=== PATIENT | female | born 1990 | race Caucasian/White ===

== ENCOUNTER 2020-05-17 20:08 | Emergency (ER) | payer MEDICAID ==
[~2020-05-17] VITALS: Ht 160 cm; Wt 88.5 kg
[2020-05-17 20:27] VITALS: BP 115/72
--- NOTE | 2020-05-17 20:35 | NUR ---
PT TO SUBHASH RESTROOM WITH STEADY GAIT, URINE SPECIMEN CUP PROVIDED
--- NOTE | 2020-05-17 20:37 | NUR ---
29 YR OLD FEMALE PRESENTED TO THE ER WITH CC OF RIGHT FLANK PAIN. PT IS AOX4. PT STATES 7/10 NON-RADIATING SHARP RIGHT FLANK PAIN THAT STARTED 1.5 WEEKS AGO. ABD IS SOFT ROUND AND NON-TENDER AND BOWEL SOUNDS HEARD IN ALL QUADRANTS. PT STATES BURNING DURING URINATION STARTED APPROXIMATELY 2 DAYS AGO. PT DENIES OTHER MEDICAL COMPLAINTS. BED LOCKED IN LOWEST POSITION. HISTORY- GLAUCOMA, WPW ALLERGIES- NONE MEDICATIONS- AZO
--- NOTE | 2020-05-17 20:37 | NUR ---
40 ML OF RED-ORANGE URINE COLLECCTED. ERMD AWARE.
--- NOTE | 2020-05-17 20:40 | NUR ---
ERMD AT BEDSIDE FOR MEDICAL EVALUATION.
[2020-05-17] MEDS ORDERED: KETOROLAC 30 MG/ML VIAL IVP ONE (20:45)
[2020-05-17] MEDS ORDERED: NACL 0.9% 500 ML IV ONE (20:45)
[2020-05-17 21:08] LABS: BASOPHILS # (AUTO) 0.1 K/uL (0.00-0.22); BASOPHILS % (AUTO) 1.1 % (0.0-2.0); EOSINOPHILS # (AUTO) 0.1 K/uL (0-0.4); EOSINOPHILS % (AUTO) 0.6 % (0.0-4.0); HEMATOCRIT 33.5 % (36-48); HEMOGLOBIN 10.6 g/dL (12.0-16.0); LYMPHOCYTES # (AUTO) 3.3 K/uL (2.5-16.5); LYMPHOCYTES % (AUTO) 33.9 % (20.5-51.1); MEAN CORPUSCULAR HEMOGLOBIN 24 pg (27-31); MEAN CORPUSCULAR HGB CONC 32 g/dL (33-37); MEAN CORPUSCULAR VOLUME 76.1 fL (80-94); MONOCYTES # (AUTO) 0.7 K/uL (0.8-1.0); MONOCYTES % (AUTO) 7.2 % (1.7-9.3); NEUTROPHILS # (AUTO) 5.6 K/uL (1.8-7.7); NEUTROPHILS % (AUTO) 57.2 % (42.2-75.2); PLATELET COUNT (AUTO) 295 K/uL (140-450); RED CELL DISTRIBUTION WIDTH 16.8 % (11.6-13.7); WHITE BLOOD COUNT (AUTO) 9.8 K/uL (4.8-10.8)
[2020-05-17 21:08] LABS: APPEARANCE,URINE CLEAR (CLEAR); BILIRUBIN,URINE NEGATIVE (NEGATIVE); BLOOD, URINE 2+ (NEGATIVE); COLOR,URINE RED (YELLOW); LEUKOCYTE ESTERASE ,URINE TRACE (NEGATIVE); NITRITE, URINE POSITIVE (NEGATIVE); UGLUCOSE 2+ (NEGATIVE)
[2020-05-17 21:20] LABS: ALBUMIN 3.6 g/dL (3.4-5.0); CARBON DIOXIDE 27.8 mmol/L (21-32); CREATININE 0.9 mg/dL (0.6-1.3); POTASSIUM 3.8 mmol/L (3.5-5.1); TOTAL BILIRUBIN 0.2 mg/dL (0.0-1.0)
[2020-05-17 21:26] LABS: RBC,URINE 11-20 (MOD) /HPF (0-5); WBC,URINE 0-5 /HPF (0-5)
--- NOTE | 2020-05-17 22:26 | NUR ---
IV removed, catheter intact and site benign. Applied folded 4x4 gauze and tape to stop bleeding.
[2020-05-17 22:27] VITALS: BP 115/72
--- NOTE | 2020-05-17 22:28 | NUR ---
Patient discharged with v/s stable. Written and verbal after care instructions given and explained. Patient alert, oriented and verbalized understanding of instructions. Ambulatory with steady gait. All questions addressed prior to discharge. ID band removed. Patient advised to follow up with PMD. Rx of CIPRO AND MOTRIN given. Patient educated on indication of medication including possible reaction and side effects. Opportunity to ask questions provided and answered.
== END 2020-05-17 22:27 | disposition home or self-care (01) ==
LOC: MED 20:08
DX: S39.012A Strain of muscle, fascia and tendon of lower back, initial encounter (principal); N39.0 Urinary tract infection, site not specified; I45.6 Pre-excitation syndrome; Z87.442 Personal history of urinary calculi; X58.XXXA Exposure to other specified factors, initial encounter; Y93.89 Activity, other specified; Y92.89 Other specified places as the place of occurrence of the external cause; Y99.8 Other external cause status
CPT/HCPCS: 36415; 74176; 80053; 81001; 81025; 85025; 87086; 96361; 96374; 99284; J1885; J7030

== ENCOUNTER 2020-07-01 18:22 | Emergency (ER) | payer MEDICAID ==
[~2020-07-01] VITALS: Ht 160 cm; Wt 88.0 kg
[2020-07-01 18:37] VITALS: BP 127/84
--- NOTE | 2020-07-01 18:44 | NUR ---
PT AMBULATED TO BED 9
--- NOTE | 2020-07-01 18:45 | NUR ---
30 Y/O FEMALE C/O RLQ AND RUQ 8/10 PAIN DESCRIBES SHARP INTERMITTENT [id number]. PT SEEN HERE [id number] AGO DX MUSCLE STRAIN PRESCRIBED IBUPROFEN. PT STATES SYMPTOMS ARE NOT SUBSIDING. PT DENIES N/V, DENIES FEVER/CHILLS. PMH: GLAUCOMA, WPW, KIDNEY STONES ([id number]) NKA
[2020-07-01 19:47] LABS: BASOPHILS # (AUTO) 0.1 K/uL (0.00-0.22); BASOPHILS % (AUTO) 0.7 % (0.0-2.0); EOSINOPHILS % (AUTO) 0.6 % (0.0-4.0); HEMATOCRIT 33.3 % (36-48); HEMOGLOBIN 10.5 g/dL (12.0-16.0); LYMPHOCYTES # (AUTO) 2.1 K/uL (2.5-16.5); LYMPHOCYTES % (AUTO) 30.2 % (20.5-51.1); MEAN CORPUSCULAR HEMOGLOBIN 24 pg (27-31); MEAN CORPUSCULAR HGB CONC 32 g/dL (33-37); MEAN CORPUSCULAR VOLUME 76.9 fL (80-94); MONOCYTES # (AUTO) 0.6 K/uL (0.8-1.0); MONOCYTES % (AUTO) 8.9 % (1.7-9.3); NEUTROPHILS # (AUTO) 4.1 K/uL (1.8-7.7); NEUTROPHILS % (AUTO) 59.6 % (42.2-75.2); PLATELET COUNT (AUTO) 261 K/uL (140-450); RED BLOOD CELL COUNT(AUTO) 4.33 MIL/uL (4.20-5.40); RED CELL DISTRIBUTION WIDTH 16.3 % (11.6-13.7); WHITE BLOOD COUNT (AUTO) 6.8 K/uL (4.8-10.8)
[2020-07-01 19:53] LABS: APPEARANCE,URINE CLEAR (CLEAR); BILIRUBIN,URINE NEGATIVE (NEGATIVE); BLOOD, URINE TRACE-I (NEGATIVE); COLOR,URINE YELLOW (YELLOW); LEUKOCYTE ESTERASE ,URINE NEGATIVE (NEGATIVE); NITRITE, URINE NEGATIVE (NEGATIVE); UGLUCOSE NEGATIVE (NEGATIVE)
--- NOTE | 2020-07-01 20:00 | NUR ---
ULTRASOUND AT BEDSIDE.
[2020-07-01 20:08] LABS: ALBUMIN 3.4 g/dL (3.4-5.0); ANION GAP 12.2 (8-16); CARBON DIOXIDE 25.6 mmol/L (21-32); POTASSIUM 3.8 mmol/L (3.5-5.1); TOTAL BILIRUBIN 0.2 mg/dL (0.0-1.0)
--- NOTE | 2020-07-01 21:23 | NUR ---
CONSENT SIGNED BY ERMD AND PATIENT.
[2020-07-01] MEDS ORDERED: MORPHINE SULFATE 4 MG/ML SYR IVP ONE (21:50)
[2020-07-01] MEDS ORDERED: NAPR-54 PO (22:27)
[2020-07-01 22:46] VITALS: BP 114/73
== END 2020-07-01 23:20 | disposition home or self-care (01) ==
LOC: MED 18:22
DX: R10.31 Right lower quadrant pain (principal); R10.32 Left lower quadrant pain; Z87.442 Personal history of urinary calculi; Z79.899 Other long term (current) drug therapy
CPT/HCPCS: 36415; 74177; 76705; 80053; 81003; 81025; 83690; 85025; 96374; 99285; J2270; Q9967

== ENCOUNTER 2020-11-23 14:02 | Emergency (ER) | payer MEDICAID ==
[~2020-11-23] VITALS: Ht 160 cm; Wt 88.9 kg
[~2020-11-23 14:02] MED LIST: NAPR-54 PO
[2020-11-23 14:07] VITALS: BP 111/65
--- NOTE | 2020-11-23 14:31 | NUR ---
30 Y/O F BIB SELF FROM HOME, PATIENT PRESENTS TO ED WITH LOWER BACK PAIN THAT RADIATES TO BILATERAL KNEES. PT STATES SHE TYPICALLY HAS CHRONIC BACK PAIN, BUT WORSENED AFTER LIFTING SON THIS MORNING AND "FELT A NEW POPPING SENSATION". DENIES N/V/D, HEMATURIA, DYSURIA, NO CVA TENDERNESS, IS ABLE TO FLEX AND EXTEND BILATERAL LEGS, CAP REFILL <3, NO PAIN UPON PALPATION OF LEGS AND BACK; SKIN IS PINK/WARM/DRY; AAOX4 WITH EVEN AND STEADY GAIT; LUNGS CLEAR BL; HR EVEN AND REGULAR; PT DENIES ANY FEVER, CP, SOB, OR COUGH AT THIS TIME; PATIENT STATES PAIN OF 7/10 AT THIS TIME; VSS; PATIENT POSITIONED FOR COMFORT; HOB ELEVATED; BEDRAILS UP X2; BED DOWN. ER MD MADE AWARE OF PT STATUS. PMH: GLAUCOMA NKA MED: TYLENOL 1000MG AND LIDOCAINE ASPIRIN CREAM AROUND 1100 TODAY
[2020-11-23] MEDS: KETOROLAC 60 MG/2 ML VIAL IM ONE (15:18)
--- NOTE | 2020-11-23 15:39 | NUR ---
Patient discharged with v/s stable. Written and verbal after care instructions given and explained. Patient alert, oriented and verbalized understanding of instructions. Ambulatory with steady gait. All questions addressed prior to discharge. ID band removed. Patient advised to follow up with PMD. Rx of Lidocaine, Robaxin, Naproxen given. Patient educated on indication of medication including possible reaction and side effects. Opportunity to ask questions provided and answered.
[2020-11-23] MEDS ORDERED: LIDO1ADH47 TP (15:44)
[2020-11-23] MEDS ORDERED: NAPR-54 PO (15:44)
[2020-11-23] MEDS ORDERED: METH-1681 PO (15:44)
== END 2020-11-23 15:39 | disposition home or self-care (01) ==
LOC: MED 14:02
DX: S39.012A Strain of muscle, fascia and tendon of lower back, initial encounter (principal); Z79.899 Other long term (current) drug therapy; X58.XXXA Exposure to other specified factors, initial encounter; Y93.89 Activity, other specified; Y92.89 Other specified places as the place of occurrence of the external cause; Y99.8 Other external cause status
CPT/HCPCS: 81002; 81025; 96372; 99283; J1885